=== PATIENT | male | born 1945 | race Caucasian/White ===

== ENCOUNTER → 2022-01-09 | Day surgery (SDC) | payer MEDICARE ==
[2022-01-04 10:42] LABS: BASOPHILS % 0.8 % (0.0-1.0); EOSINOPHILS # (AUTO) 0.2 (0.0-0.4); HEMATOCRIT 41.1 % (38.2-49.6); HEMOGLOBIN 13.6 g/dL (14.0-18.0); LYMPHOCYTES # (AUTO) 1.8 (1.0-3.2); LYMPHOCYTES % 35.4 % (18.0-39.1); MEAN CORPUSCULAR HEMOGLOBIN 31.1 pg (28-32); MEAN CORPUSCULAR HGB CONC 33.1 g/dL (31-35); MEAN CORPUSCULAR VOLUME 93.8 fL (81-99); MONOCYTES # (AUTO) 0.4 (0.2-0.8); MONOCYTES % 8.5 % (4.4-11.3); NEUTROPHILS # (AUTO) 2.5 (2.1-6.9); NEUTROPHILS % 51.1 % (38.7-80.0); PLATELET COUNT 221 x10e3/uL (140-360); RED BLOOD COUNT 4.38 x10e6/uL (4.3-5.7); RED CELL DISTRIBUTION WIDTH 12.6 % (11.7-14.4)
[2022-01-04 11:07] LABS: ALANINE AMINOTRANSFERASE 17 IU/L (0-55); ALBUMIN 3.8 g/dL (3.5-5.0); ALKALINE PHOSPHATASE 99 IU/L (40-150); ANION GAP 14.7 mmol/L (8-16); BLOOD UREA NITROGEN 21 mg/dL (7-26); BUN/CREATININE RATIO 23 (6-25); CALCIUM 9.4 mg/dL (8.4-10.2); CARBON DIOXIDE 28 mmol/L (22-29); CHLORIDE 104 mmol/L (98-107); CHOL/HDL RATIO 3.7 (3.9-4.7); CHOLESTEROL 153 MD/DL (0-199); CREATININE, SERUM 0.92 mg/dL (0.72-1.25); GLUCOSE 170 mg/dL (74-118); HDL CHOLESTEROL 41 MG/DL (40-60); LDL CHOLESTEROL 60 MG/DL (60-130); POTASSIUM 3.7 mmol/L (3.5-5.1); SODIUM 143 mmol/L (136-145); TRIGLYCERIDES 261 MG/DL (0-149)
[2022-01-09] VITALS (12 sets, daily range): BP systolic 122–140; BP diastolic 62–86
[~2022-01-09] VITALS: Ht 185.4 cm; Wt 83.9 kg
[~2022-01-09] MED LIST: ALPRAZOLAM 0.5 MG TAB ONE; ATORVASTATIN CA20 MG PO; BACLOFEN10 MG PO; DEPAKOTE250 MG PO; DIPHENHYDRAMINE HCL 25 MG CAP ONE; DOCUSATE SODIU100 MG PO; FENTANYL CITRATE/PF 100MCG/2 ML INJ ONE; FLOMAX0.4 MG PO; FLUOXETINE HCL20 MG PO; GLIPIZIDE5 MG PO; HEPARIN SOD/SOD CHLORIDE 1,000 ML ONE; HYGROTON25 MG PO; IOPAMIDOL 370 MG/ML 100 ML INFUS..BTL INJ ONE; KEPPRA250 MG PO; METFORMIN HCL500 MG PO; MIDAZOLAM HCL 2 MG/2 ML VIAL ONE; MIRALAX17 GM PO; MULTI-VITAMIN1 EACH PO; NEURONTIN300 MG PO; PANTOPRAZOLE SO40 MG PO; PLAVIX75 MG PO; POTASSIUM CHLO20 ME1 PO; SODIUM CHLORIDE 0.9% 1000ML 1,000 ML ONE; TYLENOL EXTRA500 MG PO; VERAPAMIL HCL 2.5 MG/ML 2 ML VIAL ONE
== END | disposition home or self-care (01) ==
LOC: CATH LAB 09:44
PROVIDERS: ATTEND Internal Medicine Interventional Cardiology
DX: I25.10 Atherosclerotic heart disease of native coronary artery without angina pectoris (principal); Z01.812 Encounter for preprocedural laboratory examination; Z20.822 Contact with and (suspected) exposure to COVID-19
CPT/HCPCS: 0223U; 36415 ×2; 75625; 80053; 80061; 82948; 83880; 85025; 93458; C1894; J2250; J3010; J7030; Q9967; 99152; 99153